=== PATIENT | female | born 1970 | race Caucasian/White ===

== ENCOUNTER → 2016-05-28 | Outpatient (CLI) | payer OTHER ==
[2016-05-28 09:19] LABS: PROGESTERONE 20.3 NG/ML
== END ==
LOC: M LAB 06:50
PROVIDERS: ATTEND Obstetrics & Gynecology Reproductive Endocrinology
DX: Z32.00 Encounter for pregnancy test, result unknown (principal)

== ENCOUNTER → 2016-05-31 | Outpatient (CLI) | payer OTHER ==
[2016-05-31 10:08] LABS: ESTRADIOL 662.4 PG/ML; PROGESTERONE 32.6 NG/ML
== END ==
LOC: M LAB 06:51
PROVIDERS: ATTEND Obstetrics & Gynecology Reproductive Endocrinology
DX: Z32.01 Encounter for pregnancy test, result positive (principal)

== ENCOUNTER → 2016-06-21 | Outpatient (REF) | payer OTHER | LOC: M LAB REF 17:14 | PROVIDERS: ATTEND Physician Assistant Medical | DX: Z12.4 Encounter for screening for malignant neoplasm of cervix (principal) | CPT/HCPCS: 87070; 87077; 87186; 87491; 87591; G0123 ==

== ENCOUNTER → 2016-07-07 | Outpatient (CLI) | payer OTHER ==
[2016-07-07 09:01] LABS: PROGESTERONE 38.9 NG/ML
[2016-07-07 09:02] LABS: ESTRADIOL 646.4 PG/ML
== END ==
LOC: M LAB 07:11
PROVIDERS: ATTEND Obstetrics & Gynecology Reproductive Endocrinology
DX: Z32.01 Encounter for pregnancy test, result positive (principal)

== ENCOUNTER → 2016-07-09 | Outpatient (CLI) | payer OTHER ==
[2016-07-09 09:20] LABS: ESTRADIOL 915.4 PG/ML; PROGESTERONE 36.6 NG/ML
== END ==
LOC: M LAB 07:05
PROVIDERS: ATTEND Obstetrics & Gynecology Reproductive Endocrinology
DX: Z32.01 Encounter for pregnancy test, result positive (principal)

== ENCOUNTER → 2016-07-12 | Outpatient (CLI) | payer OTHER | LOC: M LAB 07:05 | PROVIDERS: ATTEND Obstetrics & Gynecology Reproductive Endocrinology | DX: O09.00 Supervision of pregnancy with history of infertility, unspecified trimester (principal); Z3A.00 Weeks of gestation of pregnancy not specified ==

== ENCOUNTER → 2016-07-20 | Outpatient (CLI) | payer OTHER ==
[2016-07-20 08:19] LABS: HCG, SERUM QUANTITATIVE < 1.0 MIU/ML
[2016-07-20 10:05] LABS: ESTRADIOL 21.3 PG/ML; PROGESTERONE 1.2 NG/ML
== END ==
LOC: M LAB 07:09
PROVIDERS: ATTEND Obstetrics & Gynecology Reproductive Endocrinology
DX: Z32.01 Encounter for pregnancy test, result positive (principal)

== ENCOUNTER → 2016-08-11 | Outpatient (CLI) | payer OTHER ==
[2016-08-11 10:42] LABS: PROGESTERONE 25.5 NG/ML
== END ==
LOC: M LAB 07:17
PROVIDERS: ATTEND Obstetrics & Gynecology Reproductive Endocrinology
DX: Z32.00 Encounter for pregnancy test, result unknown (principal)

== ENCOUNTER → 2016-08-13 | Outpatient (CLI) | payer OTHER ==
[2016-08-13 09:22] LABS: PROGESTERONE 22.4 NG/ML
== END ==
LOC: M LAB 07:12
PROVIDERS: ATTEND Obstetrics & Gynecology Reproductive Endocrinology
DX: Z32.01 Encounter for pregnancy test, result positive (principal)

== ENCOUNTER → 2016-11-15 | Outpatient (CLI) | payer OTHER ==
[~2016-11-15] MED LIST: ASPI1TAB PO; ESTR1TAB PO; FILG30VL SC; IV IG IV; LABE10TAB PO; LEVO125T4 PO; LOVE1INJ2 SC; NALT50TA4 PO; PRED5CON PO; PROG100C PO; VITA100T86 PO; VITA200016 PO; [UNRECOGNIZED DRUG - OTHER] PO
[2016-11-15 10:06] LABS: PROGESTERONE 32.4 NG/ML
== END ==
LOC: M LAB 06:51
PROVIDERS: ATTEND Obstetrics & Gynecology Reproductive Endocrinology
DX: N97.9 Female infertility, unspecified (principal)

== ENCOUNTER → 2016-12-03 | Outpatient (CLI) | payer OTHER ==
[2016-12-03 15:54] LABS: ALBUMIN 3.4 GM/DL (3.2-5.2); ALBUMIN/GLOBULIN RATIO 0.94 (1.00-1.93); ALKALINE PHOSPHATASE 64 U/L (45-117); ALT/SGPT 23 U/L (12-78); ANION GAP 9 MEQ/L (8-16); AST/SGOT 7 U/L (15-37); BILIRUBIN,TOTAL 0.2 MG/DL (0.2-1.0); BLOOD UREA NITROGEN 11 MG/DL (7-18); CALCIUM LEVEL 9.4 MG/DL (8.5-10.1); CARBON DIOXIDE LEVEL 28 MEQ/L (21-32); CHLORIDE LEVEL 103 MEQ/L (98-107); CREATININE FOR GFR 0.67 MG/DL (0.55-1.02); GLOMERULAR FILTRATION RATE > 60.0 (>58); GLUCOSE, FASTING 104 MG/DL (70-105); POTASSIUM SERUM 4.2 MEQ/L (3.5-5.1); SODIUM LEVEL 140 MEQ/L (136-145)
--- NOTE | 2016-12-09 14:28 | REPMRS ---
Patient History The patient states she had a clinical breast exam in August 23.Patient is nulliparous. Family history of prostate cancer in father at age 50 or over, endometrial cancer in paternal aunt at age 50 or over, breast cancer in maternal aunt at age 50 or over, and breast cancer in maternal grandmother at age 50 or over. Taking unspecified hormones. Digital Mammo Screening Bilat: December 03, 2016 - Exam #: [id number] Bilateral CC and MLO view(s) were taken. Technologist: Solange Roberts, Technologist FINDINGS: The breast tissue is heterogeneously dense. This may lower the sensitivity of mammography. Compared to 03/26/15 mammo and US L breast 05/19/15.There has been no change in the appearance of the mammogram from the prior studies. There is a moderate amount of residual fibroglandular tissue which is fairly symmetric. Minor tissue asymmetry again seen in the upper inner quadrant left breast unchanged and there was a cluster of cysts there in 2016 US. There is no interval development of dominant mass, architectural distortion, or clustered microcalcification typical of malignancy. No significant changes when compared with prior studies. ASSESSMENT: BI-RADS/ACR category 2 mammogram. Benign finding(s). Recommendation Routine screening mammogram in 1 year (for women over age 40). This mammogram was interpreted with the aid of an FDA-approved computer-aided dectection system. A. Negative x-ray reports should not delay biopsy if a dominant or clinically suspicious mass is present. B. Four to eight percent of cancers are not identified by mammography. C. Adenosis and dense breast may obscure an underlying neoplasm. Electronically Signed By: Tahir Day MD 12/09/16 [id number]
== END ==
LOC: M RAD 12:39
PROVIDERS: ATTEND Physician Assistant Medical
DX: Z12.31 Encounter for screening mammogram for malignant neoplasm of breast (principal); I10 Essential (primary) hypertension
CPT/HCPCS: 36415; 80053; G0202

== ENCOUNTER → 2016-12-22 | Outpatient (CLI) | payer OTHER ==
[2016-12-22 10:46] LABS: PROGESTERONE 37.5 NG/ML
[2016-12-22 10:47] LABS: ESTRADIOL 331.3 PG/ML
== END ==
LOC: M LAB 09:37
PROVIDERS: ATTEND Obstetrics & Gynecology Reproductive Endocrinology
DX: N97.9 Female infertility, unspecified (principal)

== ENCOUNTER 2017-01-06 05:13 | Emergency (ER) | payer OTHER ==
[~2017-01-06] VITALS: Ht 172.7 cm; Wt 114.0 kg
[2017-01-06 05:19] VITALS: BP 143/90
[2017-01-06] MEDS ORDERED: ASPI1TAB PO (05:31)
[2017-01-06] MEDS ORDERED: PROG100C PO (05:31)
[2017-01-06] MEDS ORDERED: VITA100T86 PO (05:31)
[2017-01-06] MEDS ORDERED: NALT50TA4 PO (05:31)
[2017-01-06] MEDS ORDERED: LABE10TAB PO (05:31)
[2017-01-06] MEDS ORDERED: FILG30VL SC (05:31)
[2017-01-06] MEDS ORDERED: PRED5CON PO (05:31)
[2017-01-06] MEDS ORDERED: LOVE1INJ2 SC (05:31)
[2017-01-06] MEDS ORDERED: LEVO125T4 PO (05:31)
[2017-01-06] MEDS ORDERED: IV IG IV (05:31)
[2017-01-06] MEDS ORDERED: VITA200016 PO (05:31)
[2017-01-06] MEDS ORDERED: ESTR1TAB PO (05:31)
[2017-01-06] MEDS ORDERED: [UNRECOGNIZED DRUG - OTHER] PO (05:31)
[2017-01-06] MEDS ORDERED: diphenhydrAMINE INJ 50MG/ML VIAL (J1200) IV ONE (06:45)
[2017-01-06] MEDS ORDERED: FAMOTIDINE INJ 20MG/2ML VIAL (S0028) IV ONE (06:45)
[2017-01-06] MEDS ORDERED: methylPREDNISolone INJ 125 MG/2 ML VIAL (J2930) IV ONE (06:45)
[2017-01-06 07:01] LABS: BASO % 0.4 % (0.0-1.0); EOS # 0.1 K/mm3 (0.0-0.50); EOS % 1.4 % (0.0-3.0); LARGE UNSTAINED CELL # 0.1 K/mm3 (0.0-0.4); LARGE UNSTAINED CELL % 1.6 % (0.0-4.0); LYMPH % 25.2 % (24.0-44.0); MEAN CORPUSCULAR HEMOGLOBIN 30.3 pg (27.0-33.0); MEAN CORPUSCULAR HGB CONC 33.9 g/dl (32.0-36.5); MEAN CORPUSCULAR VOLUME 89.6 fl (80.0-96.0); MONO # 0.4 K/mm3 (0.0-0.8); MONO % 4.8 % (0.0-5.0); NEUTROPHILS % 66.7 % (36.0-66.0); PLATELET COUNT, AUTOMATED 256 k/mm3 (150-450); RED CELL DISTRIBUTION WIDTH 15.8 % (11.5-14.5); WHITE BLOOD COUNT 7.6 K/mm3 (4.0-10.0)
[2017-01-06 07:23] LABS: ERYTHROCYTE SEDIMENTATION RATE 16 mm/hr (0-20)
== END 2017-01-06 08:45 | disposition left against medical advice (07) ==
LOC: M ED 05:13
DX: L50.0 Allergic urticaria (principal); E11.9 Type 2 diabetes mellitus without complications; J45.909 Unspecified asthma, uncomplicated; I10 Essential (primary) hypertension; E03.9 Hypothyroidism, unspecified; M35.9 Systemic involvement of connective tissue, unspecified; Z79.899 Other long term (current) drug therapy
CPT/HCPCS: 85025; 85652; 96374; 96375; 99282; J1200; J2930

== ENCOUNTER → 2017-06-28 | Outpatient (CLI) | payer OTHER ==
[2017-06-28 08:24] LABS: HCG, SERUM QUANTITATIVE 6 MIU/ML
[2017-06-28 09:32] LABS: ESTRADIOL 235.9 PG/ML
== END ==
LOC: M LAB 07:02
DX: N97.9 Female infertility, unspecified (principal)